=== PATIENT | female | born 1940 | race Caucasian/White ===

== ENCOUNTER 2017-10-14 11:59 | Inpatient (IN) | payer MEDICARE, OTHER ==
[2017-10-14 12:38] LABS: ADD MAN DIFF? NO
[2017-10-14 12:40] LABS: WHITE BLOOD COUNT 7.7 10^3/ul (4.8-10.8)
[2017-10-14 12:40] LABS: BASOPHIL # 0.1 10^3/ul (0.0-0.1); EOSINOPHILS # 0.3 10^3/ul (0.0-0.5); EOSINOPHILS % 4.3 % (0.0-7.0); HEMATOCRIT 47.7 % (37.0-47.0); HEMOGLOBIN 15.6 g/dl (12.0-16.0); LYMPHOCYTES # 2.3 10^3/ul (0.8-2.9); LYMPHOCYTES % 29.2 % (15.0-51.0); MEAN CORPUSCULAR HEMOGLOBIN 32.7 pg (29.0-33.0); MEAN CORPUSCULAR HGB CONC 32.7 g/dl (32.0-37.0); MEAN PLATELET VOLUME 9.7 fl (7.4-10.4); MONOCYTE # 0.8 10^3/ul (0.3-0.9); MONOCYTES % 9.8 % (0.0-11.0); NEUTROPHIL # 4.3 10^3/ul (1.6-7.5); NEUTROPHILS % 55.3 % (39.0-77.0); PLATELET COUNT 271 10^3/UL (140-415); RED BLOOD COUNT 4.77 10^6/ul (4.20-5.40); RED CELL DISTRIBUTION WIDTH 12.3 % (11.5-14.5)
[2017-10-14 12:51] LABS: INR 0.88; PT RATIO 0.9
[2017-10-14 12:52] LABS: PARTIAL THROMBOPLASTIN TIME 27.2 Sec (25.0-35.0)
[2017-10-14 12:53] LABS: ANION GAP 16 (8-16); BLOOD UREA NITROGEN 17 mg/dl (7-20); CALCIUM 9.3 mg/dl (8.4-10.2); CARBON DIOXIDE 25 mmol/L (21-31); CHLORIDE 110 mmol/L (97-110); CREATININE 0.67 mg/dl (0.44-1.00); GLUCOSE 91 mg/dl (70-220); POTASSIUM 5.3 mmol/L (3.5-5.1); SODIUM 146 mmol/L (135-144)
[2017-10-14 13:04] LABS: TROPONIN-I 0.017 ng/ml (0.00-0.12)
[2017-10-14 13:35] LABS: HEMOGLOBIN A1C 5.6 % (0-5.9)
[2017-10-14 14:00] LABS: ADD UMIC NO; UR ASCORBIC ACID NEGATIVE (NEGATIVE); UR BILIRUBIN (Dip) NEGATIVE (NEGATIVE); UR BLOOD (Dip) NEGATIVE (NEGATIVE); UR CLARITY CLEAR (CLEAR); UR COLOR STRAW (YELLOW); UR GLUCOSE (Dip) NEGATIVE (NEGATIVE); UR KETONES (Dip) NEGATIVE (NEGATIVE); UR LEUKOCYTE ESTERASE (Dip) NEGATIVE Leu/ul (NEGATIVE); UR NITRITE (Dip) NEGATIVE (NEGATIVE); UR SPECIFIC GRAVITY (Dip) 1.005 (1.003-1.030); UR TOTAL PROTEIN (Dip) NEGATIVE (NEGATIVE); UR UROBILINOGEN (Dip) NEGATIVE (NEGATIVE)
[2017-10-14 14:14] LABS: AMPHETAMINE/METHAMPHETAMINE Negative (NEGATIVE); BARBITURATES Negative (NEGATIVE); BENZODIAZEPINES Positive (NEGATIVE); CANNABINOIDS Negative (NEGATIVE); COCAINE Negative (NEGATIVE); OPIATES Negative (NEGATIVE)
[2017-10-14] MEDS: ASPIRIN 81 MG TAB PO ×2 (14:24→15:28)
[2017-10-14] MEDS ORDERED: ONDANSETRON 4 MG INJ IV (14:30)
[2017-10-14] MEDS ORDERED: ACETAMINOPHEN 325 MG TAB PO (14:30)
[2017-10-14] MEDS: NA POLYST SULFON 15 GM/60 ML BTL PO ×2 (15:00→15:27)
[2017-10-14] MEDS: CLOPIDOGREL 75 MG TAB PO ×2 (15:00→15:27)
[2017-10-14] MEDS ORDERED: NON-FORMULARY/PATIENT OWN MED (Ezetimibe/Simvastatin (Vytorin 10-40 mg Tablet) 1 EACH) PO (15:00)
[2017-10-14] MEDS: ATENOLOL 50 MG TAB PO (15:00)
[2017-10-14] MEDS: SOD CHLORIDE 0.9% 1,000 ML IV ×2 (15:20→22:32)
[2017-10-14 20:11] LABS: ANION GAP 16 (8-16); BLOOD UREA NITROGEN 20 mg/dl (7-20); CALCIUM 9.4 mg/dl (8.4-10.2); CARBON DIOXIDE 25 mmol/L (21-31); CHLORIDE 109 mmol/L (97-110); GLUCOSE 79 mg/dl (70-220); POTASSIUM 3.7 mmol/L (3.5-5.1); SODIUM 146 mmol/L (135-144)
[2017-10-14 20:12] LABS: CREATINE KINASE 79 IU/L (23-200)
[2017-10-14 20:23] LABS: CK INDEX 2.5; CK-MB 1.96 ng/ml (0.0-2.4)
[2017-10-14 20:24] LABS: TROPONIN-I < 0.012 ng/ml (0.00-0.12)
[2017-10-14 20:38] LABS: ALANINE AMINOTRANSFERASE 27 IU/L (13-69); ALBUMIN 3.7 g/dl (3.3-4.9); ALKALINE PHOSPHATASE 129 IU/L (42-121); ASPARTATE AMINO TRANSFERASE 33 IU/L (15-46); BILIRUBIN,INDIRECT 0.3 mg/dl (0-1.1); BILIRUBIN,TOTAL 0.3 mg/dl (0.2-1.3); PHOSPHORUS 4.3 mg/dl (2.5-4.9); TOTAL PROTEIN 6.8 g/dl (6.1-8.1)
[2017-10-14] MEDS ORDERED: LACOSAMIDE (100 MG/10 ML PO SYR) PO (21:00)
[2017-10-15] MEDS: LORAZEPAM 2 MG INJ IV ×3 (01:44→06:47)
[2017-10-15] MEDS: HALOPERIDOL 5 MG INJ IM ×3 (02:20→18:11)
[2017-10-15] MEDS: OLOPATADINE 0.1% 5 ML OPH BOTH EYES ×3 (02:52→22:50)
[2017-10-15] MEDS: LEVETIRACETAM 500 MG (PMX) 100 ML IVPB ×3 (04:09→22:51)
[2017-10-15 06:24] LABS: ADD MAN DIFF? NO
[2017-10-15 06:40] LABS: BASOPHIL # 0.1 10^3/ul (0.0-0.1); BASOPHILS % 0.5 % (0.0-2.0); EOSINOPHILS % 0.3 % (0.0-7.0); HEMATOCRIT 44.1 % (37.0-47.0); HEMOGLOBIN 14.6 g/dl (12.0-16.0); LYMPHOCYTES # 1.5 10^3/ul (0.8-2.9); LYMPHOCYTES % 13.9 % (15.0-51.0); MEAN CORPUSCULAR HEMOGLOBIN 32.5 pg (29.0-33.0); MEAN CORPUSCULAR HGB CONC 33.1 g/dl (32.0-37.0); MEAN CORPUSCULAR VOLUME 98.2 fl (82.0-101.0); MEAN PLATELET VOLUME 9.7 fl (7.4-10.4); MONOCYTE # 0.9 10^3/ul (0.3-0.9); MONOCYTES % 8.3 % (0.0-11.0); NEUTROPHILS % 76.6 % (39.0-77.0); PLATELET COUNT 245 10^3/UL (140-415); RED BLOOD COUNT 4.49 10^6/ul (4.20-5.40); RED CELL DISTRIBUTION WIDTH 12.3 % (11.5-14.5)
[2017-10-15 06:40] LABS: WHITE BLOOD COUNT 10.4 10^3/ul (4.8-10.8)
[2017-10-15 06:52] LABS: ANION GAP 13 (8-16); BLOOD UREA NITROGEN 19 mg/dl (7-20); CALCIUM 9.2 mg/dl (8.4-10.2); CARBON DIOXIDE 26 mmol/L (21-31); CHLORIDE 107 mmol/L (97-110); CHOL/HDL RATIO 2.7 RATIO; CHOLESTEROL 176 mg/dl (100-200); CREATININE 0.59 mg/dl (0.44-1.00); GLUCOSE 100 mg/dl (70-220); HDL CHOLESTEROL 64 mg/dl (33-92); LDL CHOLESTEROL,CALCULATED 83 mg/dl; POTASSIUM 3.7 mmol/L (3.5-5.1); SODIUM 142 mmol/L (135-144); TRIGLYCERIDES 147 mg/dl (0-149)
[2017-10-15 06:53] LABS: CREATINE KINASE 218 IU/L (23-200)
[2017-10-15 07:02] LABS: HEMOGLOBIN A1C 5.5 % (0-5.9)
[2017-10-15 07:03] LABS: CK INDEX 1.2; CK-MB 2.61 ng/ml (0.0-2.4); TROPONIN-I 0.034 ng/ml (0.00-0.12)
[2017-10-15 07:21] LABS: THYROID STIMULATING HORMONE 0.549 MIU/L (0.465-4.680)
[2017-10-15] MEDS: ATORVASTATIN 20 MG TAB PO (08:11)
[2017-10-15] MEDS: EZETIMIBE 10 MG TAB PO (08:12)
[2017-10-15] MEDS: SOLIFENACIN 5 MG TAB PO (08:12)
[2017-10-15] MEDS: ATENOLOL 50 MG TAB PO (08:12)
[2017-10-15] MEDS: CLOPIDOGREL 75 MG TAB PO (08:13)
[2017-10-15] MEDS ORDERED: HALOPERIDOL 5 MG INJ IM (12:00)
[2017-10-15] MEDS: DEXTROSE 5%-0.45% NACL 1,000 ML IV (14:12)
[2017-10-15 19:06] LABS: MAGNESIUM 1.6 mg/dl (1.7-2.5)
[2017-10-16] MEDS: HALOPERIDOL 5 MG INJ IM ×2 (03:13→11:53)
[2017-10-16] MEDS: DEXTROSE 5%-0.45% NACL 1,000 ML IV ×2 (07:06→23:50)
[2017-10-16] MEDS: EZETIMIBE 10 MG TAB PO (08:20)
[2017-10-16] MEDS: SOLIFENACIN 5 MG TAB PO (08:20)
[2017-10-16] MEDS: ATENOLOL 50 MG TAB PO (08:20)
[2017-10-16] MEDS: CLOPIDOGREL 75 MG TAB PO (08:20)
[2017-10-16] MEDS: ATORVASTATIN 20 MG TAB PO (08:20)
[2017-10-16] MEDS: OLOPATADINE 0.1% 5 ML OPH BOTH EYES ×2 (08:28→20:21)
[2017-10-16] MEDS: LEVETIRACETAM 500 MG (PMX) 100 ML IVPB ×2 (08:28→20:21)
[2017-10-16 10:00] LABS: ADD MAN DIFF? NO
[2017-10-16 10:05] LABS: BASOPHILS % 0.4 % (0.0-2.0); HEMATOCRIT 42.8 % (37.0-47.0); HEMOGLOBIN 14.6 g/dl (12.0-16.0); LYMPHOCYTES # 0.9 10^3/ul (0.8-2.9); LYMPHOCYTES % 7.7 % (15.0-51.0); MEAN CORPUSCULAR HEMOGLOBIN 32.5 pg (29.0-33.0); MEAN CORPUSCULAR HGB CONC 34.1 g/dl (32.0-37.0); MEAN CORPUSCULAR VOLUME 95.3 fl (82.0-101.0); MEAN PLATELET VOLUME 9.6 fl (7.4-10.4); MONOCYTE # 1.1 10^3/ul (0.3-0.9); MONOCYTES % 9.6 % (0.0-11.0); NEUTROPHIL # 9.4 10^3/ul (1.6-7.5); NEUTROPHILS % 81.9 % (39.0-77.0); PLATELET COUNT 234 10^3/UL (140-415); RED BLOOD COUNT 4.49 10^6/ul (4.20-5.40); RED CELL DISTRIBUTION WIDTH 11.6 % (11.5-14.5)
[2017-10-16 10:05] LABS: WHITE BLOOD COUNT 11.4 10^3/ul (4.8-10.8)
[2017-10-16 10:23] LABS: ANION GAP 13 (8-16); BLOOD UREA NITROGEN 11 mg/dl (7-20); CALCIUM 9.1 mg/dl (8.4-10.2); CARBON DIOXIDE 25 mmol/L (21-31); CHLORIDE 100 mmol/L (97-110); CREATININE 0.56 mg/dl (0.44-1.00); GLUCOSE 154 mg/dl (70-220); POTASSIUM 3.1 mmol/L (3.5-5.1); SODIUM 135 mmol/L (135-144)
[2017-10-16] MEDS: hydrALAzine 20 MG INJ IV (11:54)
[2017-10-16] MEDS ORDERED: LORAZEPAM 1 MG TAB PO (14:30)
[2017-10-16] MEDS ORDERED: POTASSIUM CHLORIDE 30 MEQ in SOD CHLORIDE 0.9% 150 ML IVPB (14:30)
[2017-10-16] MEDS: FOLIC ACID 1 MG TAB PO (14:30)
[2017-10-16] MEDS: THIAMINE 100 MG TAB PO (14:30)
[2017-10-16] MEDS: POTASSIUM CHLORIDE 50 ML IVPB ×3 (14:30→17:07)
[2017-10-16] MEDS: DIGOXIN 500 MCG INJ IV ×2 (16:21→22:29)
[2017-10-16] MEDS: METOPROLOL 5 MG INJ IV (16:22)
[2017-10-16 18:57] LABS: TROPONIN-I 0.032 ng/ml (0.00-0.12)
[2017-10-16] MEDS: ENOXAPARIN 80 MG/0.8 ML SYG SC (20:25)
[2017-10-17 01:23] LABS: TROPONIN-I 0.046 ng/ml (0.00-0.12)
[2017-10-17] MEDS: HALOPERIDOL 5 MG INJ IM (02:12)
[2017-10-17] MEDS ORDERED: POTASSIUM CHLORIDE (SR) 20 MEQ TAB PO (02:45)
[2017-10-17] MEDS: MAGNESIUM SULFATE 2 GM/50 ML 50 ML IVPB (02:51)
[2017-10-17] MEDS: DIGOXIN 500 MCG INJ IV (04:30)
[2017-10-17] MEDS: POTASSIUM CHLORIDE 50 ML IVPB ×4 (04:30→17:00)
[2017-10-17] MEDS: DEXTROSE 5%-0.45% NACL 1,000 ML IV (07:33)
[2017-10-17] MEDS: ATENOLOL 50 MG TAB PO (09:00)
[2017-10-17] MEDS: EZETIMIBE 10 MG TAB PO (09:00)
[2017-10-17] MEDS: ATORVASTATIN 20 MG TAB PO (09:00)
[2017-10-17] MEDS: THIAMINE 100 MG TAB PO (09:00)
[2017-10-17] MEDS: CLOPIDOGREL 75 MG TAB PO (09:00)
[2017-10-17] MEDS: SOLIFENACIN 5 MG TAB PO (09:00)
[2017-10-17] MEDS: FOLIC ACID 1 MG TAB PO (09:00)
[2017-10-17 09:11] LABS: ADD MAN DIFF? NO
[2017-10-17 09:18] LABS: WHITE BLOOD COUNT 12.1 10^3/ul (4.8-10.8)
[2017-10-17 09:18] LABS: BASOPHILS % 0.3 % (0.0-2.0); EOSINOPHILS % 0.2 % (0.0-7.0); HEMATOCRIT 41.6 % (37.0-47.0); LYMPHOCYTES # 1.2 10^3/ul (0.8-2.9); LYMPHOCYTES % 9.5 % (15.0-51.0); MEAN CORPUSCULAR HEMOGLOBIN 32.3 pg (29.0-33.0); MEAN CORPUSCULAR HGB CONC 33.7 g/dl (32.0-37.0); MEAN CORPUSCULAR VOLUME 96.1 fl (82.0-101.0); MEAN PLATELET VOLUME 10.3 fl (7.4-10.4); MONOCYTE # 1.5 10^3/ul (0.3-0.9); MONOCYTES % 12.4 % (0.0-11.0); NEUTROPHIL # 9.3 10^3/ul (1.6-7.5); NEUTROPHILS % 77.1 % (39.0-77.0); PLATELET COUNT 217 10^3/UL (140-415); RED BLOOD COUNT 4.33 10^6/ul (4.20-5.40); RED CELL DISTRIBUTION WIDTH 11.5 % (11.5-14.5)
[2017-10-17] MEDS: OLOPATADINE 0.1% 5 ML OPH BOTH EYES ×2 (09:34→20:41)
[2017-10-17] MEDS: ENOXAPARIN 80 MG/0.8 ML SYG SC ×2 (09:37→20:50)
[2017-10-17 09:46] LABS: MAGNESIUM 1.5 mg/dl (1.7-2.5)
[2017-10-17 09:52] LABS: ALANINE AMINOTRANSFERASE 31 IU/L (13-69); ALBUMIN 3.2 g/dl (3.3-4.9); ALKALINE PHOSPHATASE 87 IU/L (42-121); ANION GAP 11 (8-16); ASPARTATE AMINO TRANSFERASE 35 IU/L (15-46); BLOOD UREA NITROGEN 13 mg/dl (7-20); CALCIUM 8.9 mg/dl (8.4-10.2); CARBON DIOXIDE 25 mmol/L (21-31); CHLORIDE 102 mmol/L (97-110); CREATININE 0.67 mg/dl (0.44-1.00); GLUCOSE 106 mg/dl (70-220); POTASSIUM 3.4 mmol/L (3.5-5.1); SODIUM 135 mmol/L (135-144); TOTAL PROTEIN 6.1 g/dl (6.1-8.1)
[2017-10-17 10:15] LABS: CHOL/HDL RATIO 2.7 RATIO; HDL CHOLESTEROL 55 mg/dl (33-92); LDL CHOLESTEROL,CALCULATED 77 mg/dl; TRIGLYCERIDES 89 mg/dl (0-149)
[2017-10-17 10:15] LABS: CHOLESTEROL 150 mg/dl (100-200)
[2017-10-17] MEDS: LEVETIRACETAM 500 MG (PMX) 100 ML IVPB ×2 (11:20→20:41)
[2017-10-17] MEDS ORDERED: MAGNESIUM SULFATE 2 GM/50 ML 50 ML IVPB (13:30)
[2017-10-17] MEDS ORDERED: POTASSIUM CHLORIDE 50 ML (15:58)
[2017-10-17] MEDS: ACETAMINOPHEN 325 MG TAB PO (22:47)
[2017-10-18] MEDS: ZOLPIDEM 5 MG TAB PO ×2 (00:07→20:59)
[2017-10-18 07:40] LABS: ADD MAN DIFF? NO
[2017-10-18 07:51] LABS: BASOPHILS % 0.6 % (0.0-2.0); EOSINOPHILS # 0.2 10^3/ul (0.0-0.5); EOSINOPHILS % 2.8 % (0.0-7.0); HEMATOCRIT 39.6 % (37.0-47.0); HEMOGLOBIN 13.1 g/dl (12.0-16.0); LYMPHOCYTES # 1.1 10^3/ul (0.8-2.9); LYMPHOCYTES % 16.6 % (15.0-51.0); MEAN CORPUSCULAR HEMOGLOBIN 32.2 pg (29.0-33.0); MEAN CORPUSCULAR HGB CONC 33.1 g/dl (32.0-37.0); MEAN CORPUSCULAR VOLUME 97.3 fl (82.0-101.0); MEAN PLATELET VOLUME 9.7 fl (7.4-10.4); MONOCYTE # 0.9 10^3/ul (0.3-0.9); MONOCYTES % 13.9 % (0.0-11.0); NEUTROPHIL # 4.2 10^3/ul (1.6-7.5); NEUTROPHILS % 65.8 % (39.0-77.0); PLATELET COUNT 209 10^3/UL (140-415); RED BLOOD COUNT 4.07 10^6/ul (4.20-5.40); RED CELL DISTRIBUTION WIDTH 11.7 % (11.5-14.5)
[2017-10-18 07:51] LABS: WHITE BLOOD COUNT 6.4 10^3/ul (4.8-10.8)
[2017-10-18 08:11] LABS: ANION GAP 11 (8-16); BLOOD UREA NITROGEN 15 mg/dl (7-20); CALCIUM 8.5 mg/dl (8.4-10.2); CARBON DIOXIDE 24 mmol/L (21-31); CHLORIDE 108 mmol/L (97-110); CREATININE 0.52 mg/dl (0.44-1.00); GLUCOSE 103 mg/dl (70-220); MAGNESIUM 1.8 mg/dl (1.7-2.5); POTASSIUM 3.3 mmol/L (3.5-5.1); SODIUM 140 mmol/L (135-144)
[2017-10-18] MEDS: EZETIMIBE 10 MG TAB PO (08:56)
[2017-10-18] MEDS: THIAMINE 100 MG TAB PO (08:56)
[2017-10-18] MEDS: CLOPIDOGREL 75 MG TAB PO (08:56)
[2017-10-18] MEDS: SOLIFENACIN 5 MG TAB PO (08:56)
[2017-10-18] MEDS: LEVETIRACETAM 500 MG TAB PO ×2 (08:56→20:53)
[2017-10-18] MEDS: FOLIC ACID 1 MG TAB PO (08:56)
[2017-10-18] MEDS: OLOPATADINE 0.1% 5 ML OPH BOTH EYES ×2 (08:56→20:53)
[2017-10-18] MEDS: ATORVASTATIN 20 MG TAB PO (08:56)
[2017-10-18] MEDS: ATENOLOL 50 MG TAB PO (08:57)
[2017-10-18] MEDS: ENOXAPARIN 80 MG/0.8 ML SYG SC ×2 (08:59→20:58)
[2017-10-18] MEDS: DEXTROSE 5%-0.45% NACL 1,000 ML IV ×2 (09:06→16:32)
[2017-10-18] MEDS: POTASSIUM CHLORIDE (SR) 20 MEQ TAB PO (16:30)
[2017-10-18] MEDS ORDERED: LORAZEPAM 2 MG INJ (22:13)
[2017-10-18] MEDS: LORAZEPAM 2 MG INJ IV (23:40)
[2017-10-19] MEDS: HALOPERIDOL 5 MG INJ IM ×2 (00:11→13:20)
[2017-10-19 06:42] LABS: MAGNESIUM 1.6 mg/dl (1.7-2.5)
[2017-10-19 06:57] LABS: ANION GAP 12 (8-16); BLOOD UREA NITROGEN 11 mg/dl (7-20); CALCIUM 9.2 mg/dl (8.4-10.2); CARBON DIOXIDE 21 mmol/L (21-31); CHLORIDE 108 mmol/L (97-110); CREATININE 0.53 mg/dl (0.44-1.00); GLUCOSE 133 mg/dl (70-220); POTASSIUM 3.4 mmol/L (3.5-5.1); SODIUM 138 mmol/L (135-144)
[2017-10-19] MEDS: LEVETIRACETAM 500 MG TAB PO ×2 (08:33→20:54)
[2017-10-19] MEDS: CLOPIDOGREL 75 MG TAB PO (08:33)
[2017-10-19] MEDS: EZETIMIBE 10 MG TAB PO (08:33)
[2017-10-19] MEDS: SOLIFENACIN 5 MG TAB PO (08:33)
[2017-10-19] MEDS: ATORVASTATIN 20 MG TAB PO (08:33)
[2017-10-19] MEDS: FOLIC ACID 1 MG TAB PO (08:33)
[2017-10-19] MEDS: OLOPATADINE 0.1% 5 ML OPH BOTH EYES ×2 (08:34→20:54)
[2017-10-19] MEDS: ATENOLOL 50 MG TAB PO (08:34)
[2017-10-19] MEDS: ENOXAPARIN 80 MG/0.8 ML SYG SC (08:36)
[2017-10-19] MEDS: DEXTROSE 5%-0.45% NACL 1,000 ML IV (15:27)
[2017-10-19] MEDS: MAGNESIUM SULFATE 4 GM/100 ML 100 ML IVPB (17:18)
[2017-10-19] MEDS: POTASSIUM CHLORIDE (SR) 20 MEQ TAB PO ×2 (17:18→20:54)
[2017-10-19] MEDS: APIXABAN 5 MG TABLET PO (20:54)
[2017-10-19] MEDS: METOPROLOL 5 MG INJ IV (20:55)
[2017-10-19] MEDS: METOPROLOL 25 MG TAB PO (21:04)
[2017-10-19] MEDS: ZOLPIDEM 5 MG TAB PO (21:04)
[2017-10-20] MEDS: POTASSIUM CHLORIDE (SR) 20 MEQ TAB PO ×3 (01:14→09:00)
[2017-10-20 06:25] LABS: ADD MAN DIFF? NO
[2017-10-20 06:33] LABS: BASOPHIL # 0.1 10^3/ul (0.0-0.1); BASOPHILS % 0.7 % (0.0-2.0); EOSINOPHILS # 0.1 10^3/ul (0.0-0.5); EOSINOPHILS % 1.1 % (0.0-7.0); HEMATOCRIT 40.6 % (37.0-47.0); HEMOGLOBIN 13.9 g/dl (12.0-16.0); LYMPHOCYTES # 1.7 10^3/ul (0.8-2.9); LYMPHOCYTES % 22.5 % (15.0-51.0); MEAN CORPUSCULAR HEMOGLOBIN 32.3 pg (29.0-33.0); MEAN CORPUSCULAR HGB CONC 34.2 g/dl (32.0-37.0); MEAN CORPUSCULAR VOLUME 94.2 fl (82.0-101.0); MEAN PLATELET VOLUME 9.3 fl (7.4-10.4); MONOCYTE # 1.1 10^3/ul (0.3-0.9); MONOCYTES % 14.1 % (0.0-11.0); NEUTROPHIL # 4.6 10^3/ul (1.6-7.5); NEUTROPHILS % 61.1 % (39.0-77.0); PLATELET COUNT 303 10^3/UL (140-415); RED BLOOD COUNT 4.31 10^6/ul (4.20-5.40); RED CELL DISTRIBUTION WIDTH 11.6 % (11.5-14.5)
[2017-10-20 06:33] LABS: WHITE BLOOD COUNT 7.5 10^3/ul (4.8-10.8)
[2017-10-20 06:53] LABS: ANION GAP 16 (8-16); BLOOD UREA NITROGEN 11 mg/dl (7-20); CALCIUM 8.8 mg/dl (8.4-10.2); CARBON DIOXIDE 21 mmol/L (21-31); CHLORIDE 109 mmol/L (97-110); CREATININE 0.57 mg/dl (0.44-1.00); GLUCOSE 121 mg/dl (70-220); POTASSIUM 3.9 mmol/L (3.5-5.1); SODIUM 142 mmol/L (135-144)
[2017-10-20] MEDS: SOLIFENACIN 5 MG TAB PO (09:00)
[2017-10-20] MEDS: CLOPIDOGREL 75 MG TAB PO (09:00)
[2017-10-20] MEDS: OLOPATADINE 0.1% 5 ML OPH BOTH EYES ×2 (09:00→21:36)
[2017-10-20] MEDS: EZETIMIBE 10 MG TAB PO (09:00)
[2017-10-20] MEDS: APIXABAN 5 MG TABLET PO ×2 (09:00→21:37)
[2017-10-20] MEDS: METOPROLOL 25 MG TAB PO ×2 (09:00→21:37)
[2017-10-20] MEDS: ATORVASTATIN 20 MG TAB PO (09:01)
[2017-10-20] MEDS: FOLIC ACID 1 MG TAB PO (09:01)
[2017-10-20] MEDS: LEVETIRACETAM 500 MG TAB PO ×2 (09:01→21:36)
[2017-10-20] MEDS: DEXTROSE 5%-0.45% NACL 1,000 ML IV ×2 (13:15→19:09)
[2017-10-20] MEDS: hydrALAzine 20 MG INJ IV (17:22)
[2017-10-20] MEDS ORDERED: ASPIRIN (EC) 81 MG TAB PO (17:30)
[2017-10-20] MEDS: ASPIRIN (EC) 81 MG TAB PO (19:04)
[2017-10-20] MEDS: ZOLPIDEM 5 MG TAB PO (21:58)
[2017-10-20] MEDS: ACETAMINOPHEN 325 MG TAB PO (21:58)
[2017-10-21] MEDS: APIXABAN 5 MG TABLET PO (09:09)
[2017-10-21] MEDS: ATORVASTATIN 20 MG TAB PO (09:09)
[2017-10-21] MEDS: OLOPATADINE 0.1% 5 ML OPH BOTH EYES (09:09)
[2017-10-21] MEDS: SOLIFENACIN 5 MG TAB PO (09:09)
[2017-10-21] MEDS: LEVETIRACETAM 500 MG TAB PO (09:09)
[2017-10-21] MEDS: METOPROLOL 25 MG TAB PO (09:09)
[2017-10-21] MEDS: EZETIMIBE 10 MG TAB PO (09:09)
[2017-10-21] MEDS: ASPIRIN (EC) 81 MG TAB PO (09:09)
[2017-10-21] MEDS: FOLIC ACID 1 MG TAB PO (09:09)
== END 2017-10-21 19:11 | disposition home health service (06) | DRG 101 ==
LOC: MS4 10-17 16:49 → E/R 11:59 → MS4 14:21
DX: G40.909 Epilepsy, unspecified, not intractable, without status epilepticus (principal); G45.9 Transient cerebral ischemic attack, unspecified; G62.9 Polyneuropathy, unspecified; I48.0 Paroxysmal atrial fibrillation; F03.90 Unspecified dementia, unspecified severity, without behavioral disturbance, psychotic disturbance, mood disturbance, and anxiety; E83.42 Hypomagnesemia; E78.5 Hyperlipidemia, unspecified; I10 Essential (primary) hypertension; E86.0 Dehydration; E87.6 Hypokalemia; F51.04 Psychophysiologic insomnia; R29.810 Facial weakness; R47.81 Slurred speech; I25.10 Atherosclerotic heart disease of native coronary artery without angina pectoris; Z79.02 Long term (current) use of antithrombotics/antiplatelets; Z79.82 Long term (current) use of aspirin; Z86.73 Personal history of transient ischemic attack (TIA), and cerebral infarction without residual deficits; Z95.1 Presence of aortocoronary bypass graft
CPT/HCPCS: 36415; 70450; 70551; 71045; 80048; 80053; 80061; 80076; 80307; 81003; 82550; 82553; 83036; 83735; 84100; 84443; 84484; 85025; 85610; 85730; 87400; 92526; 92610; 93005; 93306; 95819; 96372; 96374; 96375; 96376; 97163; 99285-25; G0378

== ENCOUNTER 2018-02-12 19:29 | Observation (INO) | payer MEDICARE, OTHER ==
[2018-02-12 22:45] LABS: ADD MAN DIFF? NO
[2018-02-12 22:50] LABS: INR 0.91; PARTIAL THROMBOPLASTIN TIME 25.6 Sec (25.0-35.0); PROTIME 12.3 Sec (11.9-14.9)
[2018-02-12 22:58] LABS: ANION GAP 15 (8-16); BLOOD UREA NITROGEN 24 mg/dl (7-20); CALCIUM 9.9 mg/dl (8.4-10.2); CARBON DIOXIDE 27 mmol/L (21-31); CHLORIDE 107 mmol/L (97-110); CREATININE 0.69 mg/dl (0.44-1.00); GLUCOSE 117 mg/dl (70-220); SODIUM 145 mmol/L (135-144)
[2018-02-12 23:10] LABS: WHITE BLOOD COUNT 9.3 10^3/ul (4.8-10.8)
[2018-02-12 23:10] LABS: BASOPHIL # 0.1 10^3/ul (0.0-0.1); BASOPHILS % 0.8 % (0.0-2.0); EOSINOPHILS # 0.2 10^3/ul (0.0-0.5); EOSINOPHILS % 2.5 % (0.0-7.0); HEMATOCRIT 46.4 % (37.0-47.0); HEMOGLOBIN 15.2 g/dl (12.0-16.0); LYMPHOCYTES # 2.4 10^3/ul (0.8-2.9); LYMPHOCYTES % 25.6 % (15.0-51.0); MEAN CORPUSCULAR HEMOGLOBIN 31.9 pg (29.0-33.0); MEAN CORPUSCULAR HGB CONC 32.8 g/dl (32.0-37.0); MEAN CORPUSCULAR VOLUME 97.5 fl (82.0-101.0); MEAN PLATELET VOLUME 9.6 fl (7.4-10.4); MONOCYTE # 1.3 10^3/ul (0.3-0.9); MONOCYTES % 13.7 % (0.0-11.0); NEUTROPHIL # 5.3 10^3/ul (1.6-7.5); NEUTROPHILS % 57.1 % (39.0-77.0); PLATELET COUNT 203 10^3/UL (140-415); RED BLOOD COUNT 4.76 10^6/ul (4.20-5.40); RED CELL DISTRIBUTION WIDTH 13.2 % (11.5-14.5)
[2018-02-12] MEDS: morphine 4 MG/ML VIAL IV (23:11)
[2018-02-12 23:12] LABS: TROPONIN-I < 0.012 ng/ml (0.00-0.12)
[2018-02-12] MEDS: ONDANSETRON 4 MG INJ IV (23:12)
[2018-02-12] MEDS: SOD CHLORIDE 0.9% 500 ML IV (23:12)
[2018-02-13] MEDS ORDERED: NACL 0.9% 3 ML SYG IV (06:00)
[2018-02-13] MEDS ORDERED: ONDANSETRON 4 MG INJ IV (06:00)
[2018-02-13] MEDS ORDERED: ALBUTEROL/IPRATROPIUM (NEB) 3 ML AMP HHN (06:00)
[2018-02-13 08:01] LABS: ADD MAN DIFF? NO
[2018-02-13 08:11] LABS: BASOPHIL # 0.1 10^3/ul (0.0-0.1); BASOPHILS % 0.7 % (0.0-2.0); EOSINOPHILS # 0.2 10^3/ul (0.0-0.5); EOSINOPHILS % 2.6 % (0.0-7.0); HEMATOCRIT 43.2 % (37.0-47.0); HEMOGLOBIN 13.8 g/dl (12.0-16.0); LYMPHOCYTES # 1.8 10^3/ul (0.8-2.9); LYMPHOCYTES % 21.2 % (15.0-51.0); MEAN CORPUSCULAR HEMOGLOBIN 31.4 pg (29.0-33.0); MEAN CORPUSCULAR HGB CONC 31.9 g/dl (32.0-37.0); MEAN CORPUSCULAR VOLUME 98.4 fl (82.0-101.0); MEAN PLATELET VOLUME 9.7 fl (7.4-10.4); MONOCYTE # 1.1 10^3/ul (0.3-0.9); MONOCYTES % 12.8 % (0.0-11.0); NEUTROPHIL # 5.4 10^3/ul (1.6-7.5); NEUTROPHILS % 62.2 % (39.0-77.0); PLATELET COUNT 182 10^3/UL (140-415); RED BLOOD COUNT 4.39 10^6/ul (4.20-5.40); RED CELL DISTRIBUTION WIDTH 13.2 % (11.5-14.5)
[2018-02-13 08:11] LABS: WHITE BLOOD COUNT 8.6 10^3/ul (4.8-10.8)
[2018-02-13 08:37] LABS: ALANINE AMINOTRANSFERASE 18 IU/L (13-69); ALBUMIN 3.8 g/dl (3.3-4.9); ALBUMIN/GLOBULIN RATIO 1.35; ALKALINE PHOSPHATASE 77 IU/L (42-121); ANION GAP 15 (8-16); ASPARTATE AMINO TRANSFERASE 18 IU/L (15-46); BILIRUBIN,INDIRECT 0.7 mg/dl (0-1.1); BILIRUBIN,TOTAL 0.7 mg/dl (0.2-1.3); BLOOD UREA NITROGEN 23 mg/dl (7-20); CARBON DIOXIDE 28 mmol/L (21-31); CHLORIDE 106 mmol/L (97-110); CHOL/HDL RATIO 2.1 RATIO; CHOLESTEROL 175 mg/dl (100-200); CREATININE 0.61 mg/dl (0.44-1.00); GLUCOSE 131 mg/dl (70-220); HDL CHOLESTEROL 82 mg/dl (33-92); LDL CHOLESTEROL,CALCULATED 75 mg/dl; MAGNESIUM 1.7 mg/dl (1.7-2.5); POTASSIUM 3.8 mmol/L (3.5-5.1); SODIUM 145 mmol/L (135-144); TOTAL PROTEIN 6.6 g/dl (6.1-8.1); TRIGLYCERIDES 88 mg/dl (0-149)
[2018-02-13] MEDS: ATENOLOL 50 MG TAB PO ×3 (09:00→11:59)
[2018-02-13 09:35] LABS: HEMOGLOBIN A1C 5.4 % (0-5.9)
[2018-02-13] MEDS: LOSARTAN 25 MG TAB PO ×2 (09:58→20:40)
[2018-02-13] MEDS: CLOPIDOGREL 75 MG TAB PO (09:59)
[2018-02-13] MEDS: ASPIRIN (EC) 81 MG TAB PO (10:00)
[2018-02-13] MEDS: GABAPENTIN 300 MG CAP PO ×2 (10:00→20:40)
[2018-02-13] MEDS: CALCIUM CARBONATE 1.25 GM TAB PO (10:01)
[2018-02-13] MEDS: CHOLECALCIFEROL 1,000 UNIT TAB PO (10:01)
[2018-02-13] MEDS: HEPARIN 5,000 UNIT/0.5 ML VIAL SC ×2 (10:04→20:57)
[2018-02-13] MEDS: SOLIFENACIN 5 MG TAB PO (11:59)
[2018-02-13] MEDS: TERBINAFINE 250 MG TAB PO ×2 (11:59→20:39)
[2018-02-13] MEDS: LACOSAMIDE (100 MG/10 ML PO SYR) PO ×2 (12:00→21:22)
[2018-02-13 12:59] LABS: ADD UMIC YES; UR ASCORBIC ACID NEGATIVE (NEGATIVE); UR BACTERIA FEW /HPF (NONE SEEN); UR BILIRUBIN (Dip) NEGATIVE (NEGATIVE); UR BLOOD (Dip) NEGATIVE (NEGATIVE); UR CLARITY SLIGHTLY CLOUDY (CLEAR); UR COLOR YELLOW (YELLOW); UR GLUCOSE (Dip) NEGATIVE (NEGATIVE); UR KETONES (Dip) NEGATIVE (NEGATIVE); UR LEUKOCYTE ESTERASE (Dip) 2+ Leu/ul (NEGATIVE); UR MUCUS FEW /HPF (NONE SEEN); UR NITRITE (Dip) NEGATIVE (NEGATIVE); UR RBC 0 /HPF (0-5); UR SPECIFIC GRAVITY (Dip) 1.021 (1.003-1.030); UR SQUAMOUS EPITHELIAL CELL FEW /HPF (FEW); UR TOTAL PROTEIN (Dip) NEGATIVE (NEGATIVE); UR UROBILINOGEN (Dip) 1+ mg/dL (NEGATIVE); UR WBC 4 /HPF (0-5)
[2018-02-13] MEDS: ACETAMINOPHEN 325 MG TAB PO (13:56)
[2018-02-13] MEDS: OLOPATADINE 0.1% 5 ML OPH BOTH EYES ×2 (13:59→20:39)
[2018-02-13] MEDS: ATORVASTATIN 20 MG TAB PO (20:39)
[2018-02-13] MEDS: EZETIMIBE 10 MG TAB PO (20:39)
[2018-02-14 07:54] LABS: ADD MAN DIFF? NO
[2018-02-14 07:56] LABS: WHITE BLOOD COUNT 6.8 10^3/ul (4.8-10.8)
[2018-02-14 07:56] LABS: BASOPHIL # 0.1 10^3/ul (0.0-0.1); BASOPHILS % 0.7 % (0.0-2.0); EOSINOPHILS # 0.1 10^3/ul (0.0-0.5); EOSINOPHILS % 1.5 % (0.0-7.0); HEMATOCRIT 42.9 % (37.0-47.0); HEMOGLOBIN 14.2 g/dl (12.0-16.0); LYMPHOCYTES # 1.8 10^3/ul (0.8-2.9); LYMPHOCYTES % 25.9 % (15.0-51.0); MEAN CORPUSCULAR HEMOGLOBIN 31.8 pg (29.0-33.0); MEAN CORPUSCULAR HGB CONC 33.1 g/dl (32.0-37.0); MEAN PLATELET VOLUME 9.7 fl (7.4-10.4); MONOCYTE # 0.9 10^3/ul (0.3-0.9); MONOCYTES % 13.5 % (0.0-11.0); NEUTROPHIL # 3.9 10^3/ul (1.6-7.5); NEUTROPHILS % 58.3 % (39.0-77.0); PLATELET COUNT 171 10^3/UL (140-415); RED BLOOD COUNT 4.47 10^6/ul (4.20-5.40); RED CELL DISTRIBUTION WIDTH 12.5 % (11.5-14.5)
[2018-02-14] MEDS: ATENOLOL 50 MG TAB PO (08:27)
[2018-02-14] MEDS: TERBINAFINE 250 MG TAB PO (08:27)
[2018-02-14] MEDS: CHOLECALCIFEROL 1,000 UNIT TAB PO (08:28)
[2018-02-14] MEDS: ASPIRIN (EC) 81 MG TAB PO (08:28)
[2018-02-14] MEDS: CALCIUM CARBONATE 1.25 GM TAB PO (08:28)
[2018-02-14] MEDS: GABAPENTIN 300 MG CAP PO (08:28)
[2018-02-14] MEDS: CLOPIDOGREL 75 MG TAB PO (08:28)
[2018-02-14] MEDS: SOLIFENACIN 5 MG TAB PO (08:28)
[2018-02-14] MEDS: HEPARIN 5,000 UNIT/0.5 ML VIAL SC (08:33)
[2018-02-14] MEDS: OLOPATADINE 0.1% 5 ML OPH BOTH EYES (08:34)
[2018-02-14] MEDS: LOSARTAN 25 MG TAB PO (08:39)
[2018-02-14] MEDS: LACOSAMIDE (100 MG/10 ML PO SYR) PO (08:40)
[2018-02-14 08:41] LABS: ANION GAP 13 (8-16); BLOOD UREA NITROGEN 12 mg/dl (7-20); CALCIUM 9.2 mg/dl (8.4-10.2); CARBON DIOXIDE 28 mmol/L (21-31); CHLORIDE 104 mmol/L (97-110); CREATININE 0.53 mg/dl (0.44-1.00); GLUCOSE 131 mg/dl (70-220); MAGNESIUM 1.7 mg/dl (1.7-2.5); PHOSPHORUS 3.9 mg/dl (2.5-4.9); POTASSIUM 3.6 mmol/L (3.5-5.1); SODIUM 141 mmol/L (135-144)
[2018-02-14] MEDS: morphine 2 MG INJ IV (11:45)
== END 2018-02-14 19:20 | disposition home or self-care (01) ==
LOC: E/R 19:29 → TEL 02-13 01:32
DX: M25.552 Pain in left hip (principal); R51 Headache; R53.1 Weakness; I25.10 Atherosclerotic heart disease of native coronary artery without angina pectoris; Z95.1 Presence of aortocoronary bypass graft; I10 Essential (primary) hypertension; E78.5 Hyperlipidemia, unspecified; I48.0 Paroxysmal atrial fibrillation; G40.909 Epilepsy, unspecified, not intractable, without status epilepticus; Z87.891 Personal history of nicotine dependence; Z79.82 Long term (current) use of aspirin; W19.XXXA Unspecified fall, initial encounter
CPT/HCPCS: 36415; 70450; 71045; 73510; 80048; 80053; 80061; 81001; 83036; 83735; 84100; 84443; 84484; 85025; 85610; 85730; 87086; 93005; 93306; 93880; 96374; 96375; 99217; 99285-25; G0378

== ENCOUNTER 2018-12-03 17:07 | Observation (INO) | payer MEDICARE, OTHER ==
[2018-12-03 17:42] LABS: ADD MAN DIFF? NO
[2018-12-03 17:45] LABS: WHITE BLOOD COUNT 7.7 10^3/ul (4.8-10.8)
[2018-12-03 17:45] LABS: BASOPHIL # 0.1 10^3/ul (0.0-0.1); BASOPHILS % 0.6 % (0.0-2.0); HEMATOCRIT 42.8 % (37.0-47.0); HEMOGLOBIN 14.4 g/dl (12.0-16.0); LYMPHOCYTES # 0.9 10^3/ul (0.8-2.9); LYMPHOCYTES % 11.5 % (15.0-51.0); MEAN CORPUSCULAR HGB CONC 33.6 g/dl (32.0-37.0); MEAN CORPUSCULAR VOLUME 101.2 fl (82.0-101.0); MEAN PLATELET VOLUME 9.5 fl (7.4-10.4); MONOCYTE # 1.1 10^3/ul (0.3-0.9); MONOCYTES % 14.4 % (0.0-11.0); NEUTROPHIL # 5.7 10^3/ul (1.6-7.5); NEUTROPHILS % 73.1 % (39.0-77.0); PLATELET COUNT 208 10^3/UL (140-415); RED BLOOD COUNT 4.23 10^6/ul (4.20-5.40); RED CELL DISTRIBUTION WIDTH 12.6 % (11.5-14.5)
[2018-12-03 18:03] LABS: ALANINE AMINOTRANSFERASE 32 IU/L (13-69); ALBUMIN 3.6 g/dl (3.3-4.9); ALBUMIN/GLOBULIN RATIO 1.28; ALKALINE PHOSPHATASE 110 IU/L (42-121); ANION GAP 11 (5-13); ASPARTATE AMINO TRANSFERASE 58 IU/L (15-46); BILIRUBIN,INDIRECT 0.6 mg/dl (0-1.1); BILIRUBIN,TOTAL 0.6 mg/dl (0.2-1.3); BLOOD UREA NITROGEN 13 mg/dl (7-20); CARBON DIOXIDE 26 mmol/L (21-31); CHLORIDE 100 mmol/L (97-110); CREATININE 0.68 mg/dl (0.44-1.00); GLUCOSE 117 mg/dl (70-220); POTASSIUM 3.1 mmol/L (3.5-5.1); SODIUM 137 mmol/L (135-144); TOTAL PROTEIN 6.4 g/dl (6.1-8.1)
[2018-12-03 18:14] LABS: B-TYPE NATRIURETIC PEPTIDE 604 PG/ML (0-450); TROPONIN-I < 0.012 ng/ml (0.000-0.120)
[2018-12-03] MEDS ORDERED: ONDANSETRON 4 MG INJ IV ×2 (18:30→19:00)
[2018-12-03] MEDS ORDERED: ACETAMINOPHEN 325 MG TAB PO ×2 (18:30→19:00)
[2018-12-03] MEDS: POTASSIUM CHLORIDE (SR) 20 MEQ TAB PO (18:53)
[2018-12-03] MEDS ORDERED: NACL 0.9% 3 ML SYG IV (19:00)
[2018-12-03] MEDS ORDERED: NITROGLYCERIN (SL) 0.4 MG TAB SL (19:00)
[2018-12-03] MEDS ORDERED: hydrALAzine 20 MG INJ IV (19:00)
[2018-12-03] MEDS: morphine 2 MG INJ IV (21:01)
[2018-12-03] MEDS: ATORVASTATIN 80 MG TAB PO (21:04)
[2018-12-03] MEDS: HYDROCODONE/APAP (5/325) TAB PO (22:48)
[2018-12-03 23:59] LABS: CREATINE KINASE 26 IU/L (23-200)
[2018-12-04 00:11] LABS: CK INDEX 1.7; CK-MB 0.44 ng/ml (0.0-2.4); TROPONIN-I 0.017 ng/ml (0.000-0.120)
[2018-12-04] MEDS: morphine 2 MG INJ IV ×2 (01:18→08:29)
[2018-12-04 06:21] LABS: ADD MAN DIFF? NO
[2018-12-04 06:27] LABS: BASOPHIL # 0.1 10^3/ul (0.0-0.1); BASOPHILS % 0.9 % (0.0-2.0); EOSINOPHILS # 0.1 10^3/ul (0.0-0.5); HEMATOCRIT 39.8 % (37.0-47.0); HEMOGLOBIN 13.3 g/dl (12.0-16.0); LYMPHOCYTES # 1.6 10^3/ul (0.8-2.9); LYMPHOCYTES % 28.2 % (15.0-51.0); MEAN CORPUSCULAR HEMOGLOBIN 33.8 pg (29.0-33.0); MEAN CORPUSCULAR HGB CONC 33.4 g/dl (32.0-37.0); MEAN CORPUSCULAR VOLUME 101.3 fl (82.0-101.0); MEAN PLATELET VOLUME 9.9 fl (7.4-10.4); MONOCYTES % 17.7 % (0.0-11.0); NEUTROPHILS % 51.9 % (39.0-77.0); PLATELET COUNT 204 10^3/UL (140-415); RED BLOOD COUNT 3.93 10^6/ul (4.20-5.40); RED CELL DISTRIBUTION WIDTH 12.3 % (11.5-14.5)
[2018-12-04 06:27] LABS: WHITE BLOOD COUNT 5.8 10^3/ul (4.8-10.8)
[2018-12-04 06:41] LABS: ALANINE AMINOTRANSFERASE 37 IU/L (13-69); ALBUMIN 3.1 g/dl (3.3-4.9); ALBUMIN/GLOBULIN RATIO 1.14; ALKALINE PHOSPHATASE 97 IU/L (42-121); ANION GAP 9 (5-13); ASPARTATE AMINO TRANSFERASE 38 IU/L (15-46); BILIRUBIN,INDIRECT 0.8 mg/dl (0-1.1); BILIRUBIN,TOTAL 0.8 mg/dl (0.2-1.3); BLOOD UREA NITROGEN 12 mg/dl (7-20); CALCIUM 8.6 mg/dl (8.4-10.2); CARBON DIOXIDE 29 mmol/L (21-31); CHLORIDE 100 mmol/L (97-110); CHOL/HDL RATIO 2.1 RATIO; CHOLESTEROL 183 mg/dl (100-200); CREATININE 0.61 mg/dl (0.44-1.00); GLUCOSE 92 mg/dl (70-220); HDL CHOLESTEROL 85 mg/dl (33-92); LDL CHOLESTEROL,CALCULATED 83 mg/dl; MAGNESIUM 1.2 mg/dl (1.7-2.5); POTASSIUM 3.3 mmol/L (3.5-5.1); SODIUM 138 mmol/L (135-144); TOTAL PROTEIN 5.8 g/dl (6.1-8.1); TRIGLYCERIDES 74 mg/dl (0-149)
[2018-12-04 06:43] LABS: CREATINE KINASE 22 IU/L (23-200)
[2018-12-04 06:49] LABS: HEMOGLOBIN A1C 4.9 % (0-5.9)
[2018-12-04 06:50] LABS: CK INDEX 1.9; CK-MB 0.42 ng/ml (0.0-2.4); TROPONIN-I 0.017 ng/ml (0.000-0.120)
[2018-12-04] MEDS: GABAPENTIN 300 MG CAP PO ×2 (08:27→20:31)
[2018-12-04] MEDS: EZETIMIBE 10 MG TAB PO (08:27)
[2018-12-04] MEDS: ASPIRIN 81 MG TAB PO (08:27)
[2018-12-04] MEDS: ATENOLOL 50 MG TAB PO (08:28)
[2018-12-04] MEDS: LOSARTAN 25 MG TAB PO ×2 (08:28→20:31)
[2018-12-04] MEDS: LACOSAMIDE (100 MG/10 ML PO SYR) PO ×3 (08:28→20:47)
[2018-12-04] MEDS: ATORVASTATIN 20 MG TAB PO (08:28)
[2018-12-04] MEDS: CLOPIDOGREL 75 MG TAB PO (08:28)
[2018-12-04] MEDS ORDERED: NON-FORMULARY/PATIENT OWN MED (Olopatadine HCl (Pazeo) 2.5 ML) OP (09:00)
[2018-12-04] MEDS ORDERED: NON-FORMULARY/PATIENT OWN MED (Lacosamide (Vimpat) 100 MG) PO (09:00)
[2018-12-04] MEDS: POTASSIUM CHLORIDE (SR) 20 MEQ TAB PO (14:40)
[2018-12-04] MEDS: MAGNESIUM SULFATE 4 GM/100 ML 100 ML IVPB (15:51)
[2018-12-05 06:03] LABS: CHOL/HDL RATIO 2.2 RATIO; HDL CHOLESTEROL 80 mg/dl (33-92); LDL CHOLESTEROL,CALCULATED 84 mg/dl; TRIGLYCERIDES 78 mg/dl (0-149)
[2018-12-05 06:03] LABS: CHOLESTEROL 180 mg/dl (100-200)
[2018-12-05 07:17] LABS: MAGNESIUM 2.2 mg/dl (1.7-2.5)
[2018-12-05] MEDS: CLOPIDOGREL 75 MG TAB PO (08:51)
[2018-12-05] MEDS: GABAPENTIN 300 MG CAP PO (08:51)
[2018-12-05] MEDS: ASPIRIN 81 MG TAB PO (08:52)
[2018-12-05] MEDS: ATORVASTATIN 20 MG TAB PO (08:52)
[2018-12-05] MEDS: EZETIMIBE 10 MG TAB PO (08:52)
[2018-12-05] MEDS: LOSARTAN 25 MG TAB PO (08:53)
[2018-12-05] MEDS: ATENOLOL 50 MG TAB PO (08:53)
[2018-12-05] MEDS: REGADENOSON 0.4 MG/5 ML SYG (11:04)
[2018-12-05] MEDS: LACOSAMIDE (100 MG/10 ML PO SYR) PO (12:54)
== END 2018-12-05 19:20 | disposition home or self-care (01) ==
LOC: E/R 17:07 → 6WM 18:24
DX: R07.9 Chest pain, unspecified (principal); R94.31 Abnormal electrocardiogram [ECG] [EKG]; I49.3 Ventricular premature depolarization; I10 Essential (primary) hypertension; E78.5 Hyperlipidemia, unspecified; I25.10 Atherosclerotic heart disease of native coronary artery without angina pectoris; Z95.5 Presence of coronary angioplasty implant and graft; Z95.1 Presence of aortocoronary bypass graft; E78.00 Pure hypercholesterolemia, unspecified; G62.9 Polyneuropathy, unspecified; Z86.73 Personal history of transient ischemic attack (TIA), and cerebral infarction without residual deficits; Z79.82 Long term (current) use of aspirin; I25.2 Old myocardial infarction; E87.6 Hypokalemia
CPT/HCPCS: 36415; 71045; 71250; 78452; 80053; 80061; 82550; 82553; 83036; 83735; 83880; 84484; 85025; 93005; 93017; 93306; 99285-25; G0378